=== PATIENT | male | born 1980 ===

== ENCOUNTER 2020-12-23 10:08 | Emergency (ER) | payer BC ==
[~2020-12-23] VITALS: Ht 180.3 cm; Wt 79.4 kg
== END 2020-12-23 12:07 | disposition home or self-care (01) ==
LOC: ER 10:08
DX: S92.352A Displaced fracture of fifth metatarsal bone, left foot, initial encounter for closed fracture (principal); W22.8XXA Striking against or struck by other objects, initial encounter; Y93.02 Activity, running; Y92.89 Other specified places as the place of occurrence of the external cause; Y99.8 Other external cause status